=== PATIENT | male | born 1945 | race Caucasian/White ===

== ENCOUNTER 2021-04-16 20:08 | Emergency (ER) | payer MEDICARE ==
[2021-04-16 21:06] LABS: BUN/CREATININE RATIO 14 (0-10)
[2021-04-16 22:18] LABS: HEMOGLOBIN 13.5 gm/dl (14.0-17.5); RED BLOOD COUNT 4.47 M/UL (4.20-5.50)
[2021-04-17] MEDS ORDERED: DOXYCYCLINE HY100 MG PO (02:59)
== END 2021-04-17 05:00 | disposition home or self-care (01) ==
LOC: ER1 20:08
PROVIDERS: Emergency Medicine
DX: R41.82 Altered mental status, unspecified (principal); R50.9 Fever, unspecified; Z20.822 Contact with and (suspected) exposure to COVID-19; Z91.041 Radiographic dye allergy status
CPT/HCPCS: 36600; 51701; 70450; 71045; 71250; 80053; 80307; 81001; 82550; 82553; 82803; 83605; 83874; 84484; 85025; 87040; 87081; 87880; 93005; 99285; J7030; U0002